=== PATIENT | male | born 1980 | race Caucasian/White ===

== ENCOUNTER → 2016-07-28 | Day surgery (SDC) | payer OTHER ==
[~2016-07-28] MED LIST: ADVIL200 M1 PO; CLARITIN D PO; CLARITIN10 M3 PO; DULCOLAX5 MG PO; HYDROCODON-ACE1 EACH PO; MULTI VITAMIN1 EACH PO; MULTIVITAMIN1 UDCAP PO; NO MEDICATIONS; SUDAFED PO; VITAMIN D350000 UNIT PO
--- NOTE | ~2016-07-28 | OR ---
Unit #: [id number] #: [id number] Patient: MELANIE MENDOZA [id number] [place], [place] [address] [id number] MR#: [id number] NAME: MELANIE MENDOZA ROOM: Date of Procedure: 07/28/2016 Admission Date: 07/28/2016 Surgeon: Cristofer Lucero M.D. : 1980 Attending Physician: Cristofer Lucero M.D. Primary Care Physician: Brannon House Aprn OPERATIVE REPORT JOB NOTE: CC: BRANNON HOUSE APRN. PRIMARY CARE PHYSICIAN Brannon House APRN and Bhupinder Andre M.D. PREOPERATIVE DIAGNOSES The patient has come for surveillance colonoscopy. He has personal history of colon polyps and family history of colon cancer. PROCEDURES PERFORMED 1. Colonoscopy and polypectomy. 2. Colonoscopy and biopsy. POSTOPERATIVE DIAGNOSES The patient had total of five polyps, four of these were present in the transverse colon and one in the descending colon. Three of the polyps in the transverse colon are diminutive and removed using cold biopsy forceps. The fourth polyp was about 8 mm in size and it was removed using snare polypectomy. The descending colon polyp was also about 8 mm in size and it was removed using snare polypectomy. The rest of the examination up to cecum and terminal ileum was normal. The quality of the prep was excellent. RECOMMENDATIONS 1. Follow up the results of polyp histology. 2. Consider repeat examination of the colon in 5 years. SEDATION USED MAC. DESCRIPTION OF PROCEDURE Following detailed explanation of the potential risks and complications of a colonoscopy, namely perforation, bleeding, and complication related to sedation, the patient was brought to GI lab and laid in the left lateral decubitus position. A digital rectal examination was performed which was normal. Lubricated tip of the Olympus video colonoscope was inserted through the anus and advanced under direct vision. The scope was advanced past rectosigmoid into descending colon. No diverticula were seen in this area. The scope tip was then navigated all the way up to cecum with visualization of the ileocecal valve and the appendiceal orifice. Preparation was excellent with good visualization and photodocumentation was obtained. Last few inches of the terminal ileum was also visualized Unit #: [id number] #: [id number] Patient: MELANIE MENDOZA after intubation of the ileocecal valve and appeared normal. Successive segments of the colonic mucosa were examined upon withdrawal. The patient was noted to have a total of five polyps, four of these were present in the transverse colon and one in the descending colon. One of the polyp in the distal transverse colon and the descending colon were removed using snare polypectomy. The other three polyps in the transverse colon were diminutive and removed using cold biopsy forceps. The patient did not have any diverticulosis nor any hemorrhoids. The scope was then withdrawn and the patient returned to recovery area. He tolerated the procedure without any postprocedure complications. Dictated by... Laura Wilcox/jack TD: 07/29/2016 00:20 JOB #: [id number] CC: Bhupinder Andre M.D. OPERATIVE REPORT Page 1 of 1 X Cristofer Lucero MD X PROCEDURE OPERATIVE NOTE
== END | disposition home or self-care (01) ==
LOC: COPS 12:34
PROVIDERS: Internal Medicine Gastroenterology
PROC: 0DBL8ZX Excision of Transverse Colon, Via Natural or Artificial Opening Endoscopic, Diagnostic (ICD-10-PCS; 2016-07-28)
PROC: 0DBM8ZX Excision of Descending Colon, Via Natural or Artificial Opening Endoscopic, Diagnostic (ICD-10-PCS; principal; 2016-07-28 14:00)
DX: Z12.11 Encounter for screening for malignant neoplasm of colon (principal); Z80.0 Family history of malignant neoplasm of digestive organs; D12.3 Benign neoplasm of transverse colon; D12.4 Benign neoplasm of descending colon; K52.9 Noninfective gastroenteritis and colitis, unspecified; F17.200 Nicotine dependence, unspecified, uncomplicated; Z79.899 Other long term (current) drug therapy; Z88.0 Allergy status to penicillin; Z88.8 Allergy status to other drugs, medicaments and biological substances
CPT/HCPCS: 88305; J2250